=== PATIENT | female | born 1985 | race Caucasian/White ===

== ENCOUNTER 2016-10-20 17:26 | Emergency (ER) | payer BC ==
--- NOTE | ~2016-10-20 | US134 ---
[facility] A Service of [facility] & [facility] RADIOLOGY TEXT RESULTS PATIENT: THANG CLARKE LOCATION: SED : [birth year] UNIT #: [id number] AGE: [address]: Rodger Felix SEX: F ORDER DR: [id number] [address] [address] [id number] E MR#: [id number] Acc #: [id number] NAME: THANG CLARKE : 1985 SEX: F STUDY DATE/TIME: 10/20/2016 19:19 UNIT: SED ROOM: STUDY DESCRIPTION: US Transvaginal Attending Physician: Rodger Felix P.A.-C. Ordering Physician: Rodger Felix P.A.-C. Primary Care Physician: Luther Loera M.D. MEDICAL IMAGING REPORT This report is preliminary unless electronic signature is present. EXAM Transvaginal OB ultrasound, 10/20/2016. HISTORY 31-year-old female with right pelvic pain for 2 days. Unsure of last menstrual period. COMPARISON None. FINDINGS Transvaginal scanning of the pelvis demonstrates a gestational sac within the endometrial echo complex measuring 13.4 mm corresponding to an estimated gestational age of 6 weeks 1 day. There is a yolk sac identified, but no pole seen. No subchorionic fluid collections. Uterus also demonstrates posterior myometrial fibroid measuring 2.6 x 2.1 x 2.3 cm. The right ovary is normal and measures 3.5 x 2.6 x 2.8 cm. Right adnexa unremarkable. Left ovary appears normal and measures 3 x 2.2 x 2.2 cm. Left adnexa unremarkable. Trace amount of free fluid in the cul-de-sac. IMPRESSION 1. Intrauterine gestational sac and yolk sac with estimated gestational age of 6 weeks 1 day. No pole identified at this time. Findings may represent very early normal intrauterine versus a nonviable . Continued followup with serial beta HCG and ultrasound as clinically warranted. 2. Posterior myometrial uterine fibroid measuring 2.6 x 2.1 x 2.3 cm. 3. Both ovaries appear within expected limits. Trace amount of free pelvic fluid. Dictated by... [facility]. [facility] A Service of [facility] & [facility] RADIOLOGY TEXT RESULTS PATIENT: THNAG CLARKE LOCATION: [facility] [place] : [birth year] UNIT #: [id number] AGE: [address]: Rodger Felix PAC SEX: F ORDER DR: Zheng Richardson M.D. THIS IS AN ELECTRONICALLY VERIFIED REPORT Zheng Richardson M.D. at 10/21/2016 4:46 PM Юлия TD: 10/21/2016 09:20 JOB #: [id number] MEDICAL IMAGING REPORT Page 1 of 1
[~2016-10-20 17:26] MED LIST: AMOXICILLIN875 MG PO; MACROBID100 MG PO; MICONAZOLE 745 GM TOP; NO MEDICATIONS; PRENATAL VITAMI1 TA3 PO; PRILOSEC20 MG PO; PYRIDIUM100 MG PO; ZANTAC150 MG PO
[2016-10-20 18:52] LABS: BASOPHIL# 0.1 X10e3 (0-0.3); BASOPHIL% 1.2 % (0-2.5); EOSINOPHIL# 0.2 X10e3 (0-0.7); EOSINOPHIL% 1.4 % (0.0-7.0); HEMATOCRIT 40.6 % (35.0-45.0); HEMOGLOBIN 13.7 gm/dL (12.0-16.0); LYMPHOCYTE# 2.9 X10e3 (1.0-3.5); LYMPHOCYTE% 23.2 % (17.0-45.0); MEAN CELL VOLUME 87.4 FL (83-96); MEAN CORPUSCULAR HEMOGLOBIN 29.5 PG (28-34); MEAN CORPUSCULAR HGB CONC 33.8 g/dL (30-36); MEAN PLATELET VOLUME 8.2 FL (6.5-11.5); MONOCYTE# 0.8 X10e3 (0-1.0); MONOCYTE% 6.4 % (3.0-12.0); NEUTROPHIL# 8.5 X10e3 (1.5-7.1); NEUTROPHIL% 67.8 % (40-75); PLATELET COUNT 339 X10e3 (140-420); RED BLOOD COUNT 4.65 X10e (3.90-5.30); RED CELL DISTRIBUTION WIDTH 13.3 % (11.0-15.5); WHITE BLOOD COUNT 12.5 X10e3 (4.0-10.5)
[2016-10-20 18:54] LABS: DIFF IND NO
[2016-10-20 18:55] LABS: URINE SOURCE CLEAN CATCH
[2016-10-20 18:59] LABS: URINE APPEARANCE CLEAR; URINE BILIRUBIN NEG (NEG); URINE BLOOD 1+ (NEG); URINE COLOR YELLOW; URINE GLUCOSE NEG (NORM); URINE KETONE NEG (NEG); URINE LEUKOCYTE ESTERASE NEG (NEG); URINE NITRATE NEG (NEG); URINE PH 5.5 (5-8); URINE PROTEIN NEG (NEG); URINE UROBILINOGEN 0.2 MG/DL (NORM)
[2016-10-20 19:03] LABS: BUN/CREATININE RATIO 17.14; CALCIUM SERUM 9.3 mg/dL (8.4-10.2); CREATININE SERUM 0.7 mg/dL (0.6-1.4); GLOM FILT RATE Estimated 117.1 mL/min (>60); POTASSIUM 3.7 mmol/L (3.5-5.1)
[2016-10-20 19:09] LABS: MICRO INDICATED? YES
[2016-10-20 19:11] LABS: CULTURE INDICATED? YES; URINE BACTERIA 1+ (NEG); URINE SQUAMOUS EPITHELIAL CELL MODERATE /[HPF]; URINE WBC 0-2 /[HPF] (0-5)
== END 2016-10-20 21:10 | disposition home or self-care (01) ==
LOC: SED 17:26
PROVIDERS: Physician Assistant
DX: O99.89 Other specified diseases and conditions complicating pregnancy, childbirth and the puerperium (principal); R10.31 Right lower quadrant pain; Z3A.01 Less than 8 weeks gestation of pregnancy
CPT/HCPCS: 36415; 76830; 80048; 81003; 84702; 85025; 86900; 86901; 87086; 99284